=== PATIENT | female | born 1950 | race Caucasian/White ===

== ENCOUNTER 2017-09-18 09:15 | Emergency (ER) | payer MEDICARE, OTHER ==
[~2017-09-18] VITALS: Ht 165.1 cm; Wt 81.6 kg
[2017-09-18 09:18] VITALS: BP 151/76
== END 2017-09-18 10:31 | disposition home or self-care (01) ==
LOC: ER 09:17
DX: R04.0 Epistaxis (principal); I10 Essential (primary) hypertension
CPT/HCPCS: A4606; Z7610